=== PATIENT | male | born 1985 | race Two or more races ===

== ENCOUNTER 2024-11-26 14:27 | Emergency (ER) | payer SELFPAY ==
[2024-11-26 14:33] VITALS: BMI 23.1
--- NOTE | 2024-11-26 14:34 | XR_ITS ---
Examination: CT brain head without contrast. 2-D sagittal coronal reconstructions Date and time of exam:November 26, 2024, 1500 hrs. Indications: Patient fell today with injury to the head, head pain CTDI: vol (mGy):50.9 DLP: (mGycm):1004 Technique: Multiple CT axial sections of the brain have been obtained, 5 mm slice thickness. Contrast has not been administered. 2-D sagittal, coronal reconstructions have been obtained Low dose protocols were performed. One or more of the following dose reduction techniques were used; automated exposure control, adjustment of the mA and/or KV according to patient size, use of iterative reconstruction technique. Findings: No significant ventricular enlargement. Intra-axial or extra-axial hemorrhage density is not seen. No mass effect or midline shift Basal cisterns are not remarkable. Fourth ventricle is midline. Cranial vault intact. Bilateral old appearing blowout fractures medial feliciano of both orbits, coronal image 11 Impression: Negative for acute hemorrhage, mass effect or midline shift
--- NOTE | 2024-11-26 14:36 | PD.EDADULT ---
ED General RME/HPI General Chief complaint: Medical Clearance Stated complaint: MEDICAL CLEARANCE Time Seen by Provider: 11/26/24 14:33 Arrival date/time: 11/26/24 14:27 CC: Medical clearance, positive loss of consciousness per patient, HPI patient presents to the ER via PD in handcuffs, stating lost consciousness as in the course of being incarcerated, he was pulled off a fence falling and losing consciousness. Patient has multiple abrasions to the left side of his face including just in front of the ear. PD reports that the patient when he fell struck his head on the side of an old car battery that was sitting on the ground. Patient is awake alert oriented complaining of localized pain 4 in the 10 scale. No other complaints patient is ambulatory. Related Data Allergies Allergy/AdvReac Type Severity Reaction Status Date / Time No Known Allergies Allergy Verified 11/26/24 14:38 Review of Systems Review of Systems Narrative Review of Systems: GEN: No fever, no chills, no weight loss EYES: No discharge, no visual changes, no pain HEENT: Left facial pain, left facial abrasions, left facial edema. Left ear pain, no congestion, no sore throat PULM: No shortness of breath, no cough, no congestion CV: No chest pain, no dyspnea on exertion, no palpitations GI: No nausea, no vomiting, no diarrhea, no pain, no constipation : No frequency, no urgency, no dysuria MUSC/SKEL: No joint pain, no back pain SKIN: No rash PSYCH: No hallucinations, no depression HEME/LYMPH: No easy bleeding or bruising tendencies NEURO: No weakness, no headache ED Exam Narrative Physical exam: [General: In mild discomfort but not in any acute distress Head normocephalic, no step-offs hematoma induration ulceration or crepitus. HEENT: Face: Left-sided facial edema with multiple partial-thickness abrasions there is a full-thickness laceration anterior to the pinna of the ear. Small amount of oozing. Mouth: [place] moist membranes uvula is midline swallow symmetrical no step-offs in palpation of the upper and lower mandible dentition. No pops or clicks from the TMJ with mastication. No otorrhea or rhinorrhea raccoon's eyes or Paz sign. All of the subsystems of HEENT are within acceptable limits Neck is supple nontender, no JVD, nontender cervical spinous process with palpation. Chest equal chest rise nontender to palpation Respiratory: Clear to auscultation no wheezes crackles or rubs CV: Rate rhythm is regular no murmurs rubs or clicks Abdomen is soft nontender no masses positive bowel sounds all 4 quadrants Back: No CVA tenderness no spinous process tenderness from cervical spine thoracic and lumbar spine Skin: Intact no petechiae rash induration ulceration or crepitus Extremities: Moving all extremity against resistance cap refill less than 2 seconds neurosensory intact Neuro: Awake alert oriented x3 Glascow coma 15 no focal deficits] Course Course Course Narrative: Reassessment of this patient at 1522 shows the patient is no deterioration in neurologic status throughout his visit. CT of the head is negative as interpreted by me read by radiology for any acute finding requires emergent or immediate intervention. Patient is cleared for longterm. Quality Measures none Orders Category Date Time Status Set Up Suture Tray STAT Care 11/26/24 14:[address] head/brain wo con Stat Exams 11/26/24 14:34 Completed Lidocaine 1% 20 ml [Xylocaine 1% 20 ML] Med 11/26/24 14:34 Discontinued 20 ml INFL X1 ONE TET,DIP/PERT AC (Adult)-Tdap [Boostrix Adult (Tdap) Med 11/26/24 14:34 Discontinued Vacc] 0.5 ml IMI .ONCE ONE PROCEDURES: Procedure Comment Laceration repair: Anesthesia 1% lidocaine 2 mL injected local site. This is a 2 cm irregular jagged laceration just anterior to the pinna of the ear. Margins were trimmed site was cleaned and probed no foreign body was found site was approximated with 2 erupted sutures of 6-0 Ethilon with good approximation without complication. Steri-Strips applied over the top of this. Patient tolerated the procedure well. Discharge Plan Plan Patient Disposition: HOME (Self Care) Patient condition on transfer: Stable Prescriptions/Referrals Referrals: No Primary/Family,Physician [Primary Care Provider] - In 1 week Problem List Clinical Impression: Medical clearance for incarceration, Laceration of face Patient/Caregiver Discharge Instructions Education Materials: ED Laceration, Face: Stitches or Tape Additional Instructions: Sutures out in 12 days Print Language: Montenegrin Stand Alone Forms: Maritza Award Info., Patient Portal Info Letter PA/FIELD UNDERWRITER Supervising Physician PA/FIELD UNDERWRITER Supervising Physician: Carmelo Ceron ENP MDM Medication Administration(s) Medication Administration History Discontinued Medications Diphtheria/Tetanus/Acell Pertussis (Diphth,Pertuss(Acell),Tet Vac 0.5 Ml Syr- Adult) 0.5 ml IMi .ONCE ONE Stop: 11/26/24 14:35 Lidocaine HCl (Lidocaine Hcl 1% 20 Ml Vial) 20 ml INFL X1 ONE Stop: 11/26/24 14:35
[2024-11-26] MEDS: DIPHTH,PERTUSS(ACELL),TET VAC 0.5 ML SYR- ADULT IMi (15:49)
[2024-11-26] MEDS: LIDOCAINE HCL 1% 20 ML VIAL INFL (15:50)
== END 2024-11-26 15:51 | disposition home or self-care (01) ==
PROVIDERS: Emergency Provider Emergency Medicine
DX: Z02.89 Encounter for other administrative examinations (principal); S01.81XA Laceration without foreign body of other part of head, initial encounter; W17.89XA Other fall from one level to another, initial encounter; Z23 Encounter for immunization
CPT/HCPCS: 12011; 70450; 90471; 90715; 99284; J3490